=== PATIENT | female | born 1965 | race Caucasian/White ===

== ENCOUNTER → 2020-10-18 | Outpatient (CLI) | payer OTHER ==
[~2020-10-18] MED LIST: CITA20; OXYACE7.5T PO; RABE20; VALA500 PO; [UNRECOGNIZED DRUG - REMARK]; [UNRECOGNIZED DRUG - REMARK]
== END | disposition home or self-care (01) ==
LOC: LAB SHORT 12:46 → PLD 12:46
DX: L82.1 Other seborrheic keratosis (principal)
CPT/HCPCS: 88305